=== PATIENT | female | born 1980 | race African-American/Black ===

== ENCOUNTER 2017-10-02 11:06 | Emergency (ER) | payer OTHER ==
[~2017-10-02] VITALS: Ht 182.9 cm; Wt 104.3 kg
== END 2017-10-02 15:51 | disposition home or self-care (01) ==
LOC: ER 11:06
DX: S20.222A Contusion of left back wall of thorax, initial encounter (principal); S20.221A Contusion of right back wall of thorax, initial encounter; S30.0XXA Contusion of lower back and pelvis, initial encounter; M62.838 Other muscle spasm; W18.39XA Other fall on same level, initial encounter; Y93.89 Activity, other specified; Y92.69 Other specified industrial and construction area as the place of occurrence of the external cause; Y99.8 Other external cause status